=== PATIENT | female | born 1970 | race Two or more races ===

== ENCOUNTER 2025-08-14 19:05 | Inpatient (IN) | payer MEDICAID, OTHER ==
[~2025-08-14] VITALS: Ht 160 cm; Wt 94.0 kg
--- NOTE | 2025-08-14 19:52 | DVH ---
EXAM: XY CHEST PORTABLE HISTORY: cp TECHNIQUE: 1 view of the chest COMPARISON: None FINDINGS/IMPRESSION: LUNGS: No pleural effusion, consolidation, or pneumothorax MEDIASTINUM: Unremarkable BONES: No acute osseous abnormality OTHER: None
[2025-08-14 19:57] LABS: Hematocrit 40.1 % (36.0-46.0); Hemoglobin 13.7 g/dL (12.2-16.2); Mean Corpuscular Hemoglobin 29.7 pg (28.0-32.0); Mean Corpuscular Volume 87.0 fL (80.0-100.0); Nucleated Red Blood Cells % 0.1 %
[2025-08-14 20:14] LABS: Albumin 4.5 g/dL (3.2-4.8); Anion Gap 10 (5-15); BUN/Creatinine Ratio 15.4 (10.0-20.0); Bilirubin, Total 0.4 mg/dL (0.2-1.0); Blood Urea Nitrogen 10 mg/dL (9-23); Calcium 9.4 mg/dL (8.7-10.4); Carbon Dioxide 25 mmol/L (20-31); Chloride 106 mmol/L (98-107); Glucose 99 mg/dL (74-106); Potassium 4.3 mmol/L (3.5-5.1); Sodium 141 mmol/L (136-145); Total Protein 7.4 g/dL (5.7-8.2)
[2025-08-14 20:15] LABS: Alanine Aminotransferase 41 U/L (7-40); Alkaline Phosphatase 134 U/L (46-116)
--- NOTE | 2025-08-14 21:12 | ED.PDOC ---
HPI Comments Jason: Chest pain HPI: Poor Historian. Left-sided chest pain worse with deep inspiration. Nonradiating. Past Medical History: Past Surgical History: REVIEW OF SYSTEMS: CONSTITUTIONAL: Denies acute: fever, diaphoresis, chills, generalized weakness. HEAD: Denies acute: headache, photophobia Eyes: Denies acute: Double vision, vision loss, eye pain, eye discharge. EARS: Denies acute: tinnitus, hearing loss, ear discharge, ear pain, THROAT: Denies acute: sore throat, swelling, difficulty swallowing , pain with swallowing, change in voice. NECK: Denies acute: neck pain, neck swelling, stiff neck. HEART: Denies acute : palpitations, LUNGS: Denies acute: SOB, wheezing, cough, hemoptysis ABDOMEN: Denies acute: abdominal pain, Nausea, Vomiting, diarrhea, melena , hematemesis, hematochezia SKIN: Denies acute: rash, redness, lesions, itchiness. EXTREMITIES: Denies acute: calf pain, numbness, tingling, weakness, denies pain in extremity. Denies acute: Low back pain. Neuro: Denies acute: focal neurological deficit, motor or sensory focal neurological deficit, tremors, seizure like activity, confusion, dizziness, change in mental status, loss of bowel or bladder function, cauda equina like symptoms. : Denies acute: dysuria, hematuria, flank pain, increase in urinary frequency. PSYCH: Denies acute: hallucination, suicidal ideation, homicidal ideation. FEMALE: Denies acute: abnormal vaginal bleeding, foul odor, unusual discharge. PHYSICAL EXAM: General: -----mild---acute distress, awake and alert. Head: normocephalic, atraumatic. Neck: supple, trachea is midline, no swelling. Throat: Normal phonation. Eyes:, no erythema, no purulent discharge, no proptosis, no icterus. Heart: regular rate, regular rhythm, no significant murmur appreciated. Lungs: no apparent respiratory distress, Able to speak in full sentences. No wheezing, no rhonchi, no crackles. No stridors Clear to auscultation bilaterally. Abdomen: non tender to palpation, non distended, soft, no guarding, no rebound, + bowel sounds. Obese Neuro: Awake, Alert, oriented to name, self, situation, follows commands GCS=15. Speech is normal. Skin: no petechia, no purpura, no cyanosis, non-pale, not jaundice. Lower extremities: --no - Pitting edema no deformity, no focal swelling, no calf TTP. Makes eye contact. moves all four extremities. Face: no apparent facial droop. Ambulating in the ED independently. ED COURSE: DISCLAIMER: This medical document was created using an electronic medical record system with voice recognition software and computerized dictation system. Although this document has been carefully reviewed, there might still be some phonetic and typographical errors. Occasional wrong-word or "sound-alike" substitutions may have occurred due to the inherent limitations of voice recognition software. These areas are purely typographical due to imperfections of the software programs and do not reflect any compromise in the patient's medical care. Please read the chart carefully and recognize, using context, where these substitutions have occurred. Chief Complaint: Chest Pain Time Seen by MD: 19:14 Allergies: Coded Allergies: NO KNOWN ALLERGIES (Unverified , 08/14/25) Information Source: Patient Mode of Arrival: Wheelchair X-Ray, Labs, Meds, VS Vital Signs Date Time Temp Pulse Resp B/P (MAP) Pulse Ox O2 Delivery O2 Flow Rate FiO2 08/14/25 21:26 97.9 64 18 162/50 (87) 98 97.9 08/14/25 20:04 66 08/14/25 19:09 98.3 65 18 193/66 98 98.3 08/14/25 19:06 72 Lab Test 08/14/25 20:11 08/14/25 19:32 Range/Units Troponin I High Sensitivity < 3 L < 3 L </=34 ng/L White Blood Count 7.2 4.4-10.8 10^3/uL Red Blood Count 4.61 4.0-5.20 10^6/uL Hemoglobin 13.7 12.2-16.2 g/dL Hematocrit 40.1 36.0-46.0 % Mean Corpuscular Volume 87.0 80.0-100.0 fL Mean Corpuscular Hemoglobin 29.7 28.0-32.0 pg Mean Corpuscular Hemoglobin Concent 34.1 32.0-36.0 g/dL Red Cell Distribution Width 13.4 11.8-14.3 % Platelet Count 235 140-450 10^3/uL Mean Platelet Volume 8.9 6.9-10.8 fL Neutrophils (%) (Auto) 60.6 37.0-80.0 % Lymphocytes (%) (Auto) 31.9 10.0-50.0 % Monocytes (%) (Auto) 5.8 0.0-12.0 % Eosinophils (%) (Auto) 1.3 0.0-7.0 % Basophils (%) (Auto) 0.4 0.0-2.0 % Neutrophils # (Auto) 4.4 1.6-8.6 10 ^3/uL Lymphocytes # (Auto) 2.3 0.4-5.4 10 ^3/uL Monocytes # (Auto) 0.4 0-1.3 10 ^3/uL Eosinophils # (Auto) 0.1 0-0.8 10 ^3/uL Basophils # (Auto) 0 0-0.2 10 ^3/uL Nucleated Red Blood Cells 0.1 % Sodium Level 141 136-145 mmol/L Potassium Level 4.3 3.5-5.1 mmol/L Chloride Level 106 98-107 mmol/L Carbon Dioxide Level 25 20-31 mmol/L Anion Gap 10 5-15 Blood Urea Nitrogen 10 9-23 mg/dL Creatinine 0.65 0.550-1.02 mg/dL Glomerular Filtration Rate Calc 103 >90 mL/min BUN/Creatinine Ratio 15.4 10.0-20.0 Serum Glucose 99 74-106 mg/dL Calcium Level 9.4 8.7-10.4 mg/dL Total Bilirubin 0.4 0.2-1.0 mg/dL Aspartate Amino Transferase (AST) 45 H 13-40 U/L Alanine Aminotransferase (ALT) 41 H 7-40 U/L Alkaline Phosphatase 134 H 46-116 U/L Total Protein 7.4 5.7-8.2 g/dL Albumin 4.5 3.2-4.8 g/dL [address] [address] Ph: [phone] DIAGNOSTIC IMAGING Diagnostic Imaging Report : [id number] Signed PATIENT: MORENO HARRINGTONCT: [id number] UNIT: [id number] : 1970 LOC: ER ROOM / BED: / AGE / SEX: 55 / F ADM STATUS: REG ER SERVICE 17 ORDERING PHYSICIAN: NATALIA FAYE DO PROCEDURE(s): CXRP - CHEST PORTABLE REASON: cp ORDER NUMBER(s): [id number], ACCESSION NUMBER(s): [id number] EXAM: XY CHEST PORTABLE HISTORY: cp TECHNIQUE: 1 view of the chest COMPARISON: None FINDINGS/IMPRESSION: LUNGS: No pleural effusion, consolidation, or pneumothorax MEDIASTINUM: Unremarkable BONES: No acute osseous abnormality OTHER: None ATED BY: TORSTEN ELIZABETH MD DICTATED DATE/TIME: 08/14/251949 SIGNED BY: TORSTEN ELIZABETH MD SIGNED DATE/TIME: 08/14/251949 CC: Departure 1 Departure Impression: Primary Impression: Chest pain Disposition: ADMITTED INPATIENT Admit to: Tele Condition: Guarded Discharged With: Self I personally scribed for NATALIA FAYE DO ([email or web address]) on 08/14/25 at 21:39. Electronically submitted by Adrienne Reed [email or web address]). NATALIA FAYE DO Aug 14, 2025 21:12
[2025-08-14 21:30] VITALS: PULSE 64; RESP 18; O2SAT 98
--- NOTE | 2025-08-14 22:09 | ECG ---
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
[2025-08-14 22:11] LABS: INR 0.97 (0.9-1.15); Partial Thromboplastin Time 27.9 SEC (24.5-34.5); Prothrombin Time 10.3 sec (9.3-11.8)
[2025-08-14 22:14] LABS: Magnesium 2.2 mg/dL (1.6-2.6)
[2025-08-14] MEDS ORDERED: ACETAMINOPHEN 325 MG TAB PO PRN (22:45)
[2025-08-14] MEDS ORDERED: MORPHINE SULFATE INJ 2 MG/ml SYRG IV PRN (22:45)
[2025-08-14] MEDS ORDERED: NITROGLYCERIN 0.4 MG SL TAB SL PRN (22:45)
[2025-08-14] MEDS ORDERED: ONDANSETRON HCL 4 MG/2 ML VIAL IV PRN (22:45)
[2025-08-14 23:22] LABS: Urine Protein, UAD Negative (Negative)
--- NOTE | 2025-08-14 23:29 | DVHHPRES ---
History of Present Illness Resident Creating Document: DWAYNE LEGGETT History of Present Illness Ms. Jason Aponte is a 55-year-old female with prior medical history of hypertension, prediabetes, and fatty liver, who presents today with chief complaint of chest pain. The patient states she has had chest pain since Wednesday morning described as pressure like, retrosternal, nonradiating, intensity 8/10, aggravated by deep inspiration, associated with shortness of breath, back pain, and febrile sensation. She refers presence of nodule in a submandibular lymph node, but refers she had this biopsied 4 months ago and was told it was benign. She denies nausea, vomiting, diaphoresis, cough, body aches, weakness, palpitations, and other symptoms. On evaluation in the ED, the patient's blood pressure was 193/66 mmHg. Twelve lead EKG shows normal sinus rhythm without ST alterations. initial labs show CBC within normal range, elevated AST, ALT, and ALP, urinalysis without significant findings, and negative UDS. Troponins were negative. Chest x-ray shows no acute cardiopulmonary disease. The patient was admitted for further workup and monitoring. Cardiovascular: HTN GI: Other (Fatty liver disease) Endocrine: Other (Prediabetes) Past Surgical History: None Family History: Other (Fatty liver disease) Smoke: No ALCOHOL: none Drugs: None Lives: with Family Review of Systems Review of Systems Constitutional: Denies weight loss, fever and chills. HEENT: Refers enlarged submandibular lymph node, Denies changes in vision and hearing. Respiratory: Denies shortness of breath and cough Cardiovascular: Refers chest pain, Denies palpitations GI: Denies abdominal distention, abdominal pain, diarrhea : Denies dysuria and urinary frequency. Musculoskeletal: Refers localized upper back pain Skin: Denies rash and pruritus. Neurological: denies dizziness headache vision or hearing problems Allergies: Coded Allergies: NO KNOWN ALLERGIES (Unverified , 08/14/25) Medications Current Medications Medications Dose Ordered Sig/Nelly Route Start Time Stop Time Status Last Admin Dose Admin Acetaminophen 325 mg Q4HP PRN PO 08/14/25 22:45 Ondansetron HCl 4 mg Q4HP PRN IV 08/14/25 22:45 Nitroglycerin 0.4 mg Q5MINP PRN SL 08/14/25 22:45 Morphine Sulfate 2 mg Q30M PRN IV 08/14/25 22:45 Losartan Potassium 25 mg DAILY PO 08/15/25 10:00 Pantoprazole Sodium 40 mg DAILY IV 08/15/25 10:00 Exam Vital Signs Vital Signs Date Time Temp Pulse Resp B/P (MAP) Pulse Ox O2 Delivery O2 Flow Rate FiO2 08/14/25 22:07 65 08/14/25 21:30 18 98 Room Air* 0 21 08/14/25 21:26 97.9 162/50 (87) 97.9 Exam General: The patient alert and oriented in person place and time. Patient following commands HEENT: Normocephalic, atraumatic, normal reactive pupils, EOM intact, pink conjunctiva, pink moist mucous membrane, mildly enlarged painless submandibular lymph node palpated Respiratory/pulmonary: Bilateral chest expansion, pain on palpation of sternal region, clear lungs bilaterally, vesicular murmurs present in almost all lung harkins, no associated crackles or wheezes. Cardiovascular: Normal RRR, normal S1 and S2, no murmurs Abdomen: Abdomen nondistended, normal bowel sounds, soft, there is no pain to palpation in any of the abdominal quadrants, no palpable masses. Extremities: No deformities, there is no peripheral edema present at the lower extremities, normal pulses Skin: No rashes or pruritus, there is no sacral edema present at this time. Neurological: Intact cranial nerves with no focal neurologic deficits Labs/Xrays Labs Test 08/14/25 22:12 08/14/25 22:10 08/14/25 21:27 08/14/25 20:11 Range/Units Troponin I High Sensitivity < 3 L </=34 ng/L Lactic Acid Level 1.1 0.4-2.0 mmol/L Urine Color Colorless Yellow Urine Clarity Clear Clear Urine pH 6.0 5.0-9.0 Urine Specific [place] 1.009 1.001-1.035 Urine Protein Negative Negative Urine Ketones Negative Negative Urine Blood Negative Negative /uL Urine Nitrite Negative Negative Urine Bilirubin Negative Negative Urine Urobilinogen Normal Negative mg/dL Urine Leukocyte Esterase Trace Negative /uL Urine RBC None seen 0 - 4 /hpf Urine Microscopic WBC 3 0-5 /HPF Urine Squamous Epithelial Cells Few <5 /hpf Urine Bacteria None seen None Seen /hpf Urine Glucose Normal Normal mg/dL Thyroid Stimulating Hormone (TSH) 1.91 0.55-4.78 uIU/mL Test 08/14/25 19:32 Range/Units White Blood Count 7.2 4.4-10.8 10^3/uL Red Blood Count 4.61 4.0-5.20 10^6/uL Hemoglobin 13.7 12.2-16.2 g/dL Hematocrit 40.1 36.0-46.0 % Mean Corpuscular Volume 87.0 80.0-100.0 fL Mean Corpuscular Hemoglobin 29.7 28.0-32.0 pg Mean Corpuscular Hemoglobin Concent 34.1 32.0-36.0 g/dL Red Cell Distribution Width 13.4 11.8-14.3 % Platelet Count 235 140-450 10^3/uL Mean Platelet Volume 8.9 6.9-10.8 fL Neutrophils (%) (Auto) 60.6 37.0-80.0 % Lymphocytes (%) (Auto) 31.9 10.0-50.0 % Monocytes (%) (Auto) 5.8 0.0-12.0 % Eosinophils (%) (Auto) 1.3 0.0-7.0 % Basophils (%) (Auto) 0.4 0.0-2.0 % Neutrophils # (Auto) 4.4 1.6-8.6 10 ^3/uL Lymphocytes # (Auto) 2.3 0.4-5.4 10 ^3/uL Monocytes # (Auto) 0.4 0-1.3 10 ^3/uL Eosinophils # (Auto) 0.1 0-0.8 10 ^3/uL Basophils # (Auto) 0 0-0.2 10 ^3/uL Nucleated Red Blood Cells 0.1 % Prothrombin Time 10.3 9.3-11.8 sec Prothrombin Time INR 0.97 0.9-1.15 Activated Partial Thromboplast Time 27.9 24.5-34.5 SEC Sodium Level 141 136-145 mmol/L Potassium Level 4.3 3.5-5.1 mmol/L Chloride Level 106 98-107 mmol/L Carbon Dioxide Level 25 20-31 mmol/L Anion Gap 10 5-15 Blood Urea Nitrogen 10 9-23 mg/dL Creatinine 0.65 0.550-1.02 mg/dL Glomerular Filtration Rate Calc 103 >90 mL/min BUN/Creatinine Ratio 15.4 10.0-20.0 Serum Glucose 99 74-106 mg/dL Hemoglobin A1c 5.4 <5.7 % A1C Calcium Level 9.4 8.7-10.4 mg/dL Phosphorus Level 3.5 2.4-5.1 mg/dL Magnesium Level 2.2 1.6-2.6 mg/dL Total Bilirubin 0.4 0.2-1.0 mg/dL Aspartate Amino Transferase (AST) 45 H 13-40 U/L Alanine Aminotransferase (ALT) 41 H 7-40 U/L Alkaline Phosphatase 134 H 46-116 U/L Total Protein 7.4 5.7-8.2 g/dL Albumin 4.5 3.2-4.8 g/dL Vitamin B12 Level 553 211-911 pg/mL Vitamin D 25-Hydroxy 33.5 30.0-100 ng/mL SEPSIS Sepsis Screen Date sepsis recognized/suspect: Aug 14, 2025 Time Sepsis recognized/suspect: 2129 Recent Procedure: No On Antibiotic Therapy: No Respiratory Rate >20: No Heart Rate >90: No Temp<36 C (96.8 F) or >38.3 C: No SBP <90 or MAP <65 mmHG: No New Acute Mental Status Change: No Is the patient on CPAP, BIPAP,: No Physician Orders Electrocardigram (08/14/25 20:09) Electrocardigram (08/14/25 22:09) Night Baker (08/14/25 ) Chest Portable (08/14/25 19:18) Drug Screen (08/14/25 21:38) Complete Blood Count (08/15/25 04:00) Basic Metabolic Panel (08/15/25 04:00) Allergies (08/14/25 22:44) Code Status (08/14/25 22:44) Acetaminophen Tablet (Tylenol Tablet) (08/14/25 22:45) Ondansetron Hcl (Zofran) (08/14/25 22:45) Nitroglycerin Sublingual (Ntrostat Subli (08/14/25 22:45) Morphine Sulfate Injection (08/14/25 22:45) Stat Ekg For Chest Pain (08/14/25 22:44) Notify Md Of Changes From Base (08/14/25 22:44) Food Service Attendant For 24 Hours (08/14/25 22:44) Emergency Dysrhythmia Protocol (08/14/25 22:44) Rhythm Strips Once Every Shift (08/14/25 22:44) Losartan Tablet (Cozaar Tablet) (08/15/25 10:00) Pantoprazole (Protonix) (08/15/25 10:00) Rapid Influenza A&B (08/14/25 22:44) Covid19 Antigen Bri (08/14/25 ) Echo 2d Mode Cardiac Dop (08/14/25 23:24) Admit (08/14/25 23:26) Vital Signs Date Time Temp Pulse Resp B/P (MAP) Pulse Ox O2 Delivery O2 Flow Rate FiO2 08/14/25 22:07 65 08/14/25 21:30 64 18 98 Room Air* 0 21 08/14/25 21:26 97.9 64 18 162/50 (87) 98 97.9 08/14/25 20:04 66 08/14/25 19:09 98.3 65 18 193/66 98 98.3 08/14/25 19:06 72 Laboratory Tests Test 08/14/25 19:32 08/14/25 22:10 White Blood Count 7.2 10^3/uL (4.4-10.8) Lactic Acid Level 1.1 mmol/L (0.4-2.0) Assessment/Plan Assessment/Plan Assessment and plan: Hypertensive crisis - Continued Losartan 25 mg p.o. daily. Added amlodipine5 mg p.o. daily - Echocardiogram ordered - Monitor blood pressure Acute chest pain, rule out ACS - EKG: Sinus rhythm no ST alterations - Troponin negative - Currently on aspirin atorvastatin. Evaluate discontinuing before discharge if ACS is ruled out - Morphine 2 mg IV Q 30 minutes PRN - Acetaminophen 325 p.o. q.4 hours PRN - Nitroglycerin 0.4 mg SL Q 5 minutes p.r.n. Possible GERD - Protonix 40 mg IV daily - Maalox 15 mL PO once Morbid Obesity, BMI 36.7 kg/m2 - I have counseled the patient on the importance of maintaining a balance diet, weight loss, and maintaining regular moderate exercise Transaminitis likely due to Fatty Liver Disease - Have counseled the patient on the importance of maintaining a low-cholesterol diet - Patient is currently on atorvastatin. If LFTs increased x5, considering discontinuing medication Enlarged submandibular lymph node - Per the patient, this was biopsied 4 months ago and states it is benign Diet: Cardiac DVT prophylaxis: Not indicated, BALDO 1 GI prophylaxis: Protonix 40 mg IV daily Case discussed with Dr. Hodge Goals of care discussed with the patient and her son for 27 minutes. FULL CODE. Plan discussed with: Patient, Son, Other (Nurses) My Orders Orders - DWAYNE LEGGETT RESIDENT Procedure Category Date Status Time Drug Screen LAB 08/14/25 In Process 21:38 Complete Blood Count LAB 08/15/25 Verified 04:00 Basic Metabolic Panel LAB 08/15/25 Verified 04:00 Allergies SHREYAS 08/14/25 In Process 22:44 Code Status CODE 08/14/25 Transmitted 22:44 Acetaminophen Tablet PHA 08/14/25 In Process (Tylenol Tablet) 22:45 Ondansetron Hcl PHA 08/14/25 In Process (Zofran) 22:45 Nitroglycerin PHA 08/14/25 In Process Sublingual (Ntrostat 22:45 Morphine Sulfate PHA 08/14/25 In Process Injection 22:45 Stat Ekg For Chest SHREYAS 08/14/25 In Process Pain 22:44 Notify Md Of Changes [facility] 08/14/25 In Process From Base 22:44 Food Service Attendant For [facility] 08/14/25 In Process 24 Hours 22:44 Emergency Dysrhythmia SHREYAS 08/14/25 In Process Protocol 22:44 Rhythm Strips Once [facility] 08/14/25 In Process Every Shift 22:44 Losartan Tablet PHA 08/15/25 In Process (Cozaar Tablet) 10:00 Pantoprazole PHA 08/15/25 In Process (Protonix) 10:00 Rapid Influenza A&B LAB 08/14/25 Logged 22:44 Covid19 Antigen Bri LAB 08/14/25 Logged Admit ADMIT 08/14/25 Transmitted 23:26 Date of Service: Aug 14, 2025 Billing Provider: MARY HODGE MD Common Visit Codes: 49685-[id number] INP/OBS CARE (HIGH) Secondary Visit Codes: [id number] CARE PLAN 30 MINUTES DWAYNE LEGGETT RESIDENT Aug 14, 2025 23:28 PANTERA JULES RESIDENT Aug 15, 2025 01:35
[2025-08-14 23:31] LABS: Amphetamine Screen, Urine Neg (NEGATIVE); Barbiturate Scree,Urine Neg (NEGATIVE); Benzodiazephine Screen, Urine Neg (NEGATIVE); Cannabinoid Screen, Urine Neg (NEGATIVE); Cocaine Screen, Urine Neg (NEGATIVE); Opiate Scree,Urine Neg (NEGATIVE); Phencyclidine Screen, Urine Neg (NEGATIVE)
--- NOTE | 2025-08-14 23:57 | ECG ---
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
[2025-08-15] MEDS: LOSARTAN POTASSIUM 25 MG TAB PO ONE (00:55)
[2025-08-15] MEDS: PANTOPRAZOLE 40 MG/10 ML VIAL INJ IV ONE (00:56)
[2025-08-15] MEDS: MAALOX PLUS or MAALOX 30 ML PO ONE (00:57)
[2025-08-15 04:01] VITALS: BP 120/49; PULSE 66; RESP 15
[2025-08-15] MEDS: ATORVASTATIN 20 MG TAB PO ONE (04:46)
--- NOTE | 2025-08-15 07:08 | ECG ---
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
[2025-08-15 07:09] LABS: Hematocrit 38.0 % (36.0-46.0); Hemoglobin 12.9 g/dL (12.2-16.2); Mean Corpuscular Hemoglobin 29.4 pg (28.0-32.0); Mean Corpuscular Volume 86.9 fL (80.0-100.0); Nucleated Red Blood Cells % 0.1 %
[2025-08-15 07:10] LABS: Chloride 107 mmol/L (98-107); Potassium 3.5 mmol/L (3.5-5.1); Sodium 141 mmol/L (136-145)
[2025-08-15 07:11] LABS: Anion Gap 9 (5-15); Calcium 8.7 mg/dL (8.7-10.4); Carbon Dioxide 25 mmol/L (20-31)
[2025-08-15 07:16] LABS: BUN/Creatinine Ratio 12.3 (10.0-20.0); Glucose 104 mg/dL (74-106)
[2025-08-15 07:23] LABS: Blood Urea Nitrogen 8 mg/dL (9-23)
[2025-08-15 07:52] VITALS: PULSE 75; RESP 14; O2SAT 99
[2025-08-15 08:56] LABS: COVID19 ANTIGEN SOFIA FIA NEGATIVE (NEGATIVE)
[2025-08-15 09:30] VITALS: BP 110/54; PULSE 62; RESP 14; TEMP 97.8; O2SAT 99
[2025-08-15] MEDS: PANTOPRAZOLE 40 MG/10 ML VIAL INJ IV SCH (10:45)
[2025-08-15] MEDS: LOSARTAN POTASSIUM 25 MG TAB PO SCH (10:47)
[2025-08-15] MEDS ORDERED: LOSA-534 PO (13:35)
[2025-08-15] MEDS ORDERED: AMLO1TAB22 PO (13:35)
--- NOTE | 2025-08-15 17:36 | DVHDSRES ---
Discharge Summary Date of Admission Resident Creating Document: KAREN ZHONG RESIDENT Aug 14, 2025 at 23:26 Date of Discharge: Aug 15, 2025 Admitting Diagnosis Hypertensive crisis Labs/Diagnostic Data: Laboratory Results Test 08/15/25 06:56 08/14/25 22:12 08/14/25 22:10 08/14/25 21:27 White Blood Count 6.3 10^3/uL (4.4-10.8) Red Blood Count 4.37 10^6/uL (4.0-5.20) Hemoglobin 12.9 g/dL (12.2-16.2) Hematocrit 38.0 % (36.0-46.0) Mean Corpuscular Volume 86.9 fL (80.0-100.0) Mean Corpuscular Hemoglobin 29.4 pg (28.0-32.0) Mean Corpuscular Hemoglobin Concent 33.8 g/dL (32.0-36.0) Red Cell Distribution Width 13.3 % (11.8-14.3) Platelet Count 207 10^3/uL (140-450) Mean Platelet Volume 8.6 fL (6.9-10.8) Neutrophils (%) (Auto) 60.3 % (37.0-80.0) Lymphocytes (%) (Auto) 31.3 % (10.0-50.0) Monocytes (%) (Auto) 6.0 % (0.0-12.0) Eosinophils (%) (Auto) 1.7 % (0.0-7.0) Basophils (%) (Auto) 0.7 % (0.0-2.0) Neutrophils # (Auto) 3.8 10 ^3/uL (1.6-8.6) Lymphocytes # (Auto) 2.0 10 ^3/uL (0.4-5.4) Monocytes # (Auto) 0.4 10 ^3/uL (0-1.3) Eosinophils # (Auto) 0.1 10 ^3/uL (0-0.8) Basophils # (Auto) 0 10 ^3/uL (0-0.2) Nucleated Red Blood Cells 0.1 % Sodium Level 141 mmol/L (136-145) Potassium Level 3.5 mmol/L (3.5-5.1) Chloride Level 107 mmol/L (98-107) Carbon Dioxide Level 25 mmol/L (20-31) Anion Gap 9 (5-15) Blood Urea Nitrogen 8 mg/dL (9-23) Creatinine 0.65 mg/dL (0.550-1.02) Glomerular Filtration Rate Calc 103 mL/min (>90) BUN/Creatinine Ratio 12.3 (10.0-20.0) Serum Glucose 104 mg/dL (74-106) Calcium Level 8.7 mg/dL (8.7-10.4) Troponin I High Sensitivity < 3 ng/L (</=34) Lactic Acid Level 1.1 mmol/L (0.4-2.0) Urine Color Colorless (Yellow) Urine Clarity Clear (Clear) Urine pH 6.0 (5.0-9.0) Urine Specific [place] 1.009 (1.001-1.035) Urine Protein Negative (Negative) Urine Ketones Negative (Negative) Urine Blood Negative /uL (Negative) Urine Nitrite Negative (Negative) Urine Bilirubin Negative (Negative) Urine Urobilinogen Normal mg/dL (Negative) Urine Leukocyte Esterase Trace /uL (Negative) Urine RBC None seen /hpf (0 - 4) Urine Microscopic WBC 3 /HPF (0-5) Urine Squamous Epithelial Cells Few /hpf (<5) Urine Bacteria None seen /hpf (None Seen) Urine Glucose Normal mg/dL (Normal) Urine Opiates Screen Neg (NEGATIVE) Urine Fentanyl Screen Neg (NEGATIVE) Urine Barbiturates Screen Neg (NEGATIVE) Urine Phencyclidine Screen Neg (NEGATIVE) Urine Amphetamines Screen Neg (NEGATIVE) Urine Benzodiazepines Screen Neg (NEGATIVE) Urine Cocaine Screen Neg (NEGATIVE) Urine Cannabinoids Screen Neg (NEGATIVE) Test 08/14/25 20:11 08/14/25 19:32 08/14/25 07:43 Thyroid Stimulating Hormone (TSH) 1.91 uIU/mL (0.55-4.78) Prothrombin Time 10.3 sec (9.3-11.8) Prothrombin Time INR 0.97 (0.9-1.15) Activated Partial Thromboplast Time 27.9 SEC (24.5-34.5) Hemoglobin A1c 5.4 % A1C (<5.7) Phosphorus Level 3.5 mg/dL (2.4-5.1) Magnesium Level 2.2 mg/dL (1.6-2.6) Total Bilirubin 0.4 mg/dL (0.2-1.0) Aspartate Amino Transferase (AST) 45 U/L (13-40) Alanine Aminotransferase (ALT) 41 U/L (7-40) Alkaline Phosphatase 134 U/L (46-116) Total Protein 7.4 g/dL (5.7-8.2) Albumin 4.5 g/dL (3.2-4.8) Vitamin B12 Level 553 pg/mL (211-911) Vitamin D 25-Hydroxy 33.5 ng/mL (30.0-100) Influenza Type A Antigen Negative (Negative) Influenza Type B Antigen Negative (Negative) SARS-CoV-2 Antigen (Rapid) Negative (NEGATIVE) Other Laboratory Tests 08/15/25 06:56 Brief Hx & Hospital Course: Ms. Jason Aponte is a 55-year-old female with prior medical history of hypertension, prediabetes, and fatty liver, who presents today with chief complaint of chest pain. The patient states she has had chest pain since Wednesday morning described as pressure like, retrosternal, nonradiating, intensity 8/10, aggravated by deep inspiration, associated with shortness of breath, back pain, and febrile sensation. She refers presence of nodule in a submandibular lymph node, but refers she had this biopsied 4 months ago and was told it was benign. She denies nausea, vomiting, diaphoresis, cough, body aches, weakness, palpitations, and other symptoms. On evaluation in the ED, the patient's blood pressure was 193/66 mmHg. Twelve lead EKG shows normal sinus rhythm without ST alterations. initial labs show CBC within normal range, elevated AST, ALT, and ALP, urinalysis without significant findings, and negative UDS. Troponins were negative. Chest x-ray shows no acute cardiopulmonary disease. The patient was admitted for further workup and monitoring. Cardiovascular: HTN GI: Other (Fatty liver disease) Endocrine: Other (Prediabetes) Past Surgical History: None Family History: Other (Fatty liver disease) Smoke: No ALCOHOL: none Drugs: None Lives: with Family Brief history of hospitalization: patient came to the ED with high BP of 190/ 66 mmHg, hypertensive crisis. We continued home medication losartan 25 mg and added amlodipine 5 mg per orally. We will continue to monitor her blood pressure and it decreased slowly Back to normal. Chest pain we ruled out ACS as EKG showed sinus rhythm with no ST alterations and troponins were negative. We ordered morphine 2 mg IV Q 30 minutes PRN, acetaminophen 325 mg p.o. q.4 PRN and nitroglycerin 0.4 mg PRN as well to address the chest pain. For possible GERD we gave her Protonix 40 mg IV and Maalox 15 mL per orally once. Patient reported feeling much better after medication. Her lab reports showed transaminitis which was likely due to fatty liver disease that the patient reported having when we took her history. We have asked the patient to be compliant to her hypertensive medication and the side effects of not taking them. We are discharging the patient as she is stable with increased movement of dose of losartan to 50 mg daily along with addition of amlodipine 5 mg per orally daily as well. Patient communicated understanding in his agreed to the discharge plan. We have asked her to meet her primary care physician as well as follow up at [facility] within 2 weeks. General: The patient alert and oriented in person place and time. Patient following commands HEENT: Normocephalic, atraumatic, normal reactive pupils, EOM intact, pink conjunctiva, pink moist mucous membrane, mildly enlarged painless submandibular lymph node palpated Respiratory/pulmonary: Bilateral chest expansion, pain on palpation of sternal region, clear lungs bilaterally, vesicular murmurs present in almost all lung harkins, no associated crackles or wheezes. Cardiovascular: Normal RRR, normal S1 and S2, no murmurs Abdomen: Abdomen nondistended, normal bowel sounds, soft, there is no pain to palpation in any of the abdominal quadrants, no palpable masses. Extremities: No deformities, there is no peripheral edema present at the lower extremities, normal pulses Skin: No rashes or pruritus, there is no sacral edema present at this time. Neurological: Intact cranial nerves with no focal neurologic deficits Operations or Procedures PROCEDURE(s): CXRP - CHEST PORTABLE REASON: cp ORDER NUMBER(s): [id number], ACCESSION NUMBER(s): [id number] FINDINGS/IMPRESSION: LUNGS: No pleural effusion, consolidation, or pneumothorax MEDIASTINUM: Unremarkable BONES: No acute osseous abnormality OTHER: None Condition at Discharge: Stable Final Diagnosis/Problems List Hypertensive crisis Acute chest pain due to hypertensive crisis, ruled out ACS GERD Morbid Obesity, BMI 36.7 kg/m2 Transaminitis likely due to Fatty Liver Disease Enlarged submandibular lymph node Discharge Disposition: Home Discharge Instruct/Medications Diet: Consistent carbohydrate, Cardiac 2g Na,low cholest Activity: No Restrictions, As Tolerated Follow Up/Referral: Follow up with PCP in 10 days Follow up with [facility] within two weeks Medications: Losartan 50 mg p.o. daily Amlodipine 5 mg p.o. daily Resume all other home medications Scheduled Amlodipine Besylate (Amlodipine Besylate), 1 TAB PO DAILY Losartan Potassium (Losartan Potassium), 1 TAB PO DAILY Discharge Statement: "Patient was advised to return to the ER or call 911 if any headaches, dizziness, shortness of breath, chest pain, abdominal pain, bleeding, fevers, or worsening of medical condition. Patient was counseled about treatment plan, medications, possible side effects, patientverbalized understanding. All questions were answered to the best of my ability. This discharge took greater then 30 minutes in planning, reviewing documentation, counseling the patient, and discussing with other team members." ASSESSMENT ASSESSMENT Assessment Hypertensive crisis KAREN ZHONG RESIDENT Aug 15, 2025 17:36
[2025-08-15] MEDS ORDERED: ATORVASTATIN 20 MG TAB PO SCH (22:00)
== END 2025-08-15 15:17 | disposition home or self-care (01) | DRG 199 ==
LOC: ER 19:05 → OVERFLOW 23:26
PROVIDERS: ADMIT Student in an Organized Health Care Education/Training Program; ATTEND Student in an Organized Health Care Education/Training Program
DX: I16.9 Hypertensive crisis, unspecified (principal); E66.01 Morbid (severe) obesity due to excess calories; I10 Essential (primary) hypertension; K21.9 Gastro-esophageal reflux disease without esophagitis; Z68.36 Body mass index [BMI] 36.0-36.9, adult; Z20.822 Contact with and (suspected) exposure to COVID-19; R73.03 Prediabetes; R74.01 Elevation of levels of liver transaminase levels; K76.0 Fatty (change of) liver, not elsewhere classified; R59.9 Enlarged lymph nodes, unspecified
CPT/HCPCS: 36415; 71045; 80048; 80053; 80307; 81001; 82306; 82607; 83036; 83605; 83735; 84100; 84443; 84484; 85025; 85610; 85730; 87426; 87804; 93005; 96374; G0378; J2470